=== PATIENT | female | born 1970 | race Caucasian/White ===

== ENCOUNTER 2022-03-25 19:28 | Observation (INO) | payer OTHER ==
[2022-03-25 19:35] VITALS: BMI 29.2
[2022-03-25] MEDS ORDERED: ACETAMINOPHEN 1000 MG/100 ML BAG IVPB ONE (22:08)
[2022-03-25] MEDS ORDERED: ACETAMINOPHEN INJECTION 100 ML IVPB ONE (22:14)
[2022-03-25 22:19] LABS: BASO % 0.9 % (0-2.0); EOS % 1.7 % (0-4.5); HEMATOCRIT 38.1 % (32.4-45.2); HEMOGLOBIN 12.2 GM/dL (10.7-15.3); MCH 28.2 pg (25.7-33.7); MCHC 32.1 g/dl (32.0-36.0); MEAN PLT VOLUME 7.6 fl (7.5-11.1); MONO % 7.6 % (3.8-10.2); NEUT % 50.8 % (42.8-82.8); PLATELET COUNT 251 10^3/uL (134-434); RBC 4.33 M/mm3 (3.60-5.2); RDW 13.6 % (11.6-15.6); WHITE BLOOD COUNT 7.3 K/mm3 (4.0-10.0)
[2022-03-25 23:20] LABS: CALCIUM 8.8 mg/dL (8.5-10.1)
[2022-03-25 23:21] LABS: ALBUMIN 3.5 g/dl (3.4-5.0); BLOOD UREA NITROGEN 15.2 mg/dL (7-18)
[2022-03-25 23:24] LABS: CREATININE 0.6 mg/dL (0.55-1.3)
[2022-03-25 23:26] LABS: TOT PROT 6.6 g/dl (6.4-8.2)
[2022-03-25 23:30] LABS: BILIRUBIN,TOTAL 0.2 mg/dL (0.2-1)
[2022-03-26] MEDS ORDERED: KETOROLAC TROMETHAMINE 15 MG/ML VIAL IVPUSH ONE (00:16)
[2022-03-26] MEDS ORDERED: KETOROLAC TROMETHAMINE 15 MG/ML VIAL ONE ×2 (00:17→09:21)
[2022-03-26] MEDS ORDERED: SODIUM CHLORIDE 0.9% 500 ML INFUS.BAG IV ONE (01:51)
[2022-03-26] MEDS ORDERED: METOCLOPRAMIDE HCL INJECTION 10 MG/2 ML VIAL IVPUSH ONE (01:55)
[2022-03-26] MEDS ORDERED: ACETAMINOPHEN 1000 MG/100 ML BAG IVPB PRN ×2 (02:00→03:47)
[2022-03-26 02:50] LABS: MAGNESIUM 2.1 mg/dL (1.8-2.4)
[2022-03-26] MEDS ORDERED: SODIUM CHLORIDE 500 ML IV STA (03:47)
[2022-03-26] MEDS ORDERED: KETOROLAC TROMETHAMINE 15 MG/ML VIAL IM PRN (06:00)
[2022-03-26 09:11] VITALS: BP 108/54; PULSE 68; RESP 15; TEMP 98.2
== END 2022-03-26 19:10 | disposition home or self-care (01) ==
LOC: JER 19:28 → UNDOADMOB 20:09 → JERBED 20:09 → INTOOBSV 03-26 01:48 → OBSVTOIN 03-26 01:48 → JERBED 03-26 03:44
PROVIDERS: ADMIT Internal Medicine; ATTEND Internal Medicine
PROC: 3E033GC Introduction of Other Therapeutic Substance into Peripheral Vein, Percutaneous Approach (ICD-10-PCS; principal; 2022-03-26)
PROC: 3E033NZ Introduction of Analgesics, Hypnotics, Sedatives into Peripheral Vein, Percutaneous Approach (ICD-10-PCS; 2022-03-26)
PROC: 3E0333Z Introduction of Anti-inflammatory into Peripheral Vein, Percutaneous Approach (ICD-10-PCS; 2022-03-26)
PROC: 3E0337Z Introduction of Electrolytic and Water Balance Substance into Peripheral Vein, Percutaneous Approach (ICD-10-PCS; 2022-03-26)
DX: G44.219 Episodic tension-type headache, not intractable (principal); G44.52 New daily persistent headache (NDPH); G93.5 Compression of brain; F17.210 Nicotine dependence, cigarettes, uncomplicated
CPT/HCPCS: 0241U-QW; 36415; 70450-TC; 70551-TC; 80053; 83735; 85025; 93005; 93010; 96374; 96375; 96376; 99285-25; G0378

== ENCOUNTER 2023-05-04 06:44 | Emergency (ER) | payer OTHER ==
[2023-05-04 06:51] VITALS: BP 110/55; PULSE 85; RESP 17; TEMP 98.8; BMI 34.0
== END 2023-05-04 07:40 | disposition home or self-care (01) ==
LOC: FER 06:44
DX: R09.81 Nasal congestion (principal); J01.90 Acute sinusitis, unspecified; U07.1 COVID-19
CPT/HCPCS: 0241U-QW; 99283-25

== ENCOUNTER 2023-05-29 00:04 | Emergency (ER) | payer OTHER ==
[2023-05-29 00:11] VITALS: BP 105/58; PULSE 73; RESP 18; TEMP 98.5; BMI 32.4
[2023-05-29] MEDS ORDERED: MAG HYDROX/AL HYDROX/SIMETH 30 ML UNIT-DOSE CUP ONE (00:19)
[2023-05-29] MEDS: MAG HYDROX/AL HYDROX/SIMETH 30 ML UNIT-DOSE CUP PO ONE (00:26)
== END 2023-05-29 00:34 | disposition home or self-care (01) ==
LOC: FER 00:04
DX: R09.89 Other specified symptoms and signs involving the circulatory and respiratory systems (principal); K21.9 Gastro-esophageal reflux disease without esophagitis; Z20.822 Contact with and (suspected) exposure to COVID-19
CPT/HCPCS: 0241U-QW; 99283-25